=== PATIENT | male | born 1965 | race Hispanic/Latino ===

== ENCOUNTER 2020-12-22 08:41 | Outpatient (CLI) | payer SELFPAY | END 2020-12-22 08:42 | disposition home or self-care (01) | LOC: CSHWCC 08:41 | PROVIDERS: ATTEND Nurse Practitioner Family | DX: I87.331 Chronic venous hypertension (idiopathic) with ulcer and inflammation of right lower extremity (principal); L97.212 Non-pressure chronic ulcer of right calf with fat layer exposed; R60.0 Localized edema; T81.89XA Other complications of procedures, not elsewhere classified, initial encounter; E11.40 Type 2 diabetes mellitus with diabetic neuropathy, unspecified; E11.65 Type 2 diabetes mellitus with hyperglycemia; E11.621 Type 2 diabetes mellitus with foot ulcer; E66.01 Morbid (severe) obesity due to excess calories; G43.109 Migraine with aura, not intractable, without status migrainosus; I10 Essential (primary) hypertension; I83.91 Asymptomatic varicose veins of right lower extremity; I87.2 Venous insufficiency (chronic) (peripheral); I89.0 Lymphedema, not elsewhere classified; W45.0XXA Nail entering through skin, initial encounter | CPT/HCPCS: 11042; 97605; 99203; G0463 ==

== ENCOUNTER 2020-12-24 11:44 | Outpatient (CLI) | payer SELFPAY | END 2020-12-24 11:45 | disposition home or self-care (01) | LOC: CSHWCC 11:44 | PROVIDERS: ATTEND Nurse Practitioner Family | DX: T81.89XD Other complications of procedures, not elsewhere classified, subsequent encounter (principal); I87.331 Chronic venous hypertension (idiopathic) with ulcer and inflammation of right lower extremity; I87.2 Venous insufficiency (chronic) (peripheral); E11.622 Type 2 diabetes mellitus with other skin ulcer; E11.621 Type 2 diabetes mellitus with foot ulcer; L97.212 Non-pressure chronic ulcer of right calf with fat layer exposed; L97.509 Non-pressure chronic ulcer of other part of unspecified foot with unspecified severity; R60.0 Localized edema; I89.0 Lymphedema, not elsewhere classified; E11.40 Type 2 diabetes mellitus with diabetic neuropathy, unspecified; E11.65 Type 2 diabetes mellitus with hyperglycemia; G43.109 Migraine with aura, not intractable, without status migrainosus; I10 Essential (primary) hypertension; E66.01 Morbid (severe) obesity due to excess calories; W45.0XXD Nail entering through skin, subsequent encounter | CPT/HCPCS: 97605; 99213; G0463 ==

== ENCOUNTER 2020-12-26 12:50 | Outpatient (CLI) | payer SELFPAY | END 2020-12-26 12:51 | disposition home or self-care (01) | LOC: CSHWCC 12:50 | PROVIDERS: ATTEND Nurse Practitioner Family | DX: T81.89XD Other complications of procedures, not elsewhere classified, subsequent encounter (principal); I87.331 Chronic venous hypertension (idiopathic) with ulcer and inflammation of right lower extremity; I87.2 Venous insufficiency (chronic) (peripheral); E11.622 Type 2 diabetes mellitus with other skin ulcer; E11.621 Type 2 diabetes mellitus with foot ulcer; L97.212 Non-pressure chronic ulcer of right calf with fat layer exposed; L97.509 Non-pressure chronic ulcer of other part of unspecified foot with unspecified severity; I89.0 Lymphedema, not elsewhere classified; R60.0 Localized edema; E11.40 Type 2 diabetes mellitus with diabetic neuropathy, unspecified; E11.65 Type 2 diabetes mellitus with hyperglycemia; G43.109 Migraine with aura, not intractable, without status migrainosus; E66.01 Morbid (severe) obesity due to excess calories; W45.0XXD Nail entering through skin, subsequent encounter | CPT/HCPCS: 97605; 99213; G0463 ==

== ENCOUNTER 2020-12-31 13:48 | Outpatient (CLI) | payer SELFPAY | END 2020-12-31 13:49 | disposition home or self-care (01) | LOC: CSHWCC 13:48 | PROVIDERS: ATTEND Nurse Practitioner Family | DX: T81.89XD Other complications of procedures, not elsewhere classified, subsequent encounter (principal); I87.331 Chronic venous hypertension (idiopathic) with ulcer and inflammation of right lower extremity; L97.212 Non-pressure chronic ulcer of right calf with fat layer exposed; R60.0 Localized edema; E11.40 Type 2 diabetes mellitus with diabetic neuropathy, unspecified; E11.65 Type 2 diabetes mellitus with hyperglycemia; E11.621 Type 2 diabetes mellitus with foot ulcer; L97.509 Non-pressure chronic ulcer of other part of unspecified foot with unspecified severity; E66.01 Morbid (severe) obesity due to excess calories; G43.109 Migraine with aura, not intractable, without status migrainosus; I10 Essential (primary) hypertension; I83.91 Asymptomatic varicose veins of right lower extremity; I87.2 Venous insufficiency (chronic) (peripheral); I89.0 Lymphedema, not elsewhere classified; W45.0XXD Nail entering through skin, subsequent encounter | CPT/HCPCS: 97605; 99213; G0463 ==

== ENCOUNTER 2021-01-02 11:27 | Outpatient (CLI) | payer SELFPAY | END 2021-01-02 11:28 | disposition home or self-care (01) | LOC: CSHWCC 11:27 | PROVIDERS: ATTEND Nurse Practitioner Family | DX: T81.89XD Other complications of procedures, not elsewhere classified, subsequent encounter (principal); I87.331 Chronic venous hypertension (idiopathic) with ulcer and inflammation of right lower extremity; I87.2 Venous insufficiency (chronic) (peripheral); E11.621 Type 2 diabetes mellitus with foot ulcer; L97.212 Non-pressure chronic ulcer of right calf with fat layer exposed; E11.40 Type 2 diabetes mellitus with diabetic neuropathy, unspecified; E11.65 Type 2 diabetes mellitus with hyperglycemia; I89.0 Lymphedema, not elsewhere classified; E66.01 Morbid (severe) obesity due to excess calories; G43.109 Migraine with aura, not intractable, without status migrainosus; R60.0 Localized edema; W45.0XXD Nail entering through skin, subsequent encounter | CPT/HCPCS: 97605; 99213; G0463 ==

== ENCOUNTER 2021-01-16 11:08 | Outpatient (CLI) | payer OTHER | END 2021-01-16 11:09 | disposition home or self-care (01) | LOC: CSHWCC 11:08 | PROVIDERS: ATTEND Nurse Practitioner Family | DX: T81.89XD Other complications of procedures, not elsewhere classified, subsequent encounter (principal); I87.331 Chronic venous hypertension (idiopathic) with ulcer and inflammation of right lower extremity; I87.2 Venous insufficiency (chronic) (peripheral); E11.621 Type 2 diabetes mellitus with foot ulcer; E11.622 Type 2 diabetes mellitus with other skin ulcer; L97.212 Non-pressure chronic ulcer of right calf with fat layer exposed; L97.509 Non-pressure chronic ulcer of other part of unspecified foot with unspecified severity; I89.0 Lymphedema, not elsewhere classified; R60.0 Localized edema; E11.40 Type 2 diabetes mellitus with diabetic neuropathy, unspecified; E11.65 Type 2 diabetes mellitus with hyperglycemia; G43.109 Migraine with aura, not intractable, without status migrainosus; E66.01 Morbid (severe) obesity due to excess calories; W45.0XXD Nail entering through skin, subsequent encounter | CPT/HCPCS: 11043; 11046; 29581; 99213; G0463 ==

== ENCOUNTER 2021-04-16 09:28 | Outpatient (CLI) | payer OTHER | END 2021-04-16 09:29 | disposition home or self-care (01) | LOC: CSHWCC 09:28 | PROVIDERS: ATTEND Nurse Practitioner Family | DX: T81.89XD Other complications of procedures, not elsewhere classified, subsequent encounter (principal); E11.40 Type 2 diabetes mellitus with diabetic neuropathy, unspecified; E11.65 Type 2 diabetes mellitus with hyperglycemia; E11.621 Type 2 diabetes mellitus with foot ulcer; E66.01 Morbid (severe) obesity due to excess calories; G43.109 Migraine with aura, not intractable, without status migrainosus; I10 Essential (primary) hypertension; I83.91 Asymptomatic varicose veins of right lower extremity; I87.2 Venous insufficiency (chronic) (peripheral); I87.331 Chronic venous hypertension (idiopathic) with ulcer and inflammation of right lower extremity; L97.212 Non-pressure chronic ulcer of right calf with fat layer exposed; I89.0 Lymphedema, not elsewhere classified; T86.821 Skin graft (allograft) (autograft) failure; W45.0XXS Nail entering through skin, sequela; Z91.19 Patient's noncompliance with other medical treatment and regimen | CPT/HCPCS: 11042; 11045; 87070; 87077; 87186; 87205; 99213; G0463 ==

== ENCOUNTER 2021-04-21 11:20 | Outpatient (CLI) | payer OTHER | END 2021-04-21 11:21 | disposition home or self-care (01) | LOC: CSHWCC 11:20 | PROVIDERS: ATTEND Nurse Practitioner Family | DX: T81.89XD Other complications of procedures, not elsewhere classified, subsequent encounter (principal); T86.821 Skin graft (allograft) (autograft) failure; I87.331 Chronic venous hypertension (idiopathic) with ulcer and inflammation of right lower extremity; I87.2 Venous insufficiency (chronic) (peripheral); E11.621 Type 2 diabetes mellitus with foot ulcer; E11.622 Type 2 diabetes mellitus with other skin ulcer; L97.212 Non-pressure chronic ulcer of right calf with fat layer exposed; L97.509 Non-pressure chronic ulcer of other part of unspecified foot with unspecified severity; E11.40 Type 2 diabetes mellitus with diabetic neuropathy, unspecified; E11.65 Type 2 diabetes mellitus with hyperglycemia; I89.0 Lymphedema, not elsewhere classified; R60.0 Localized edema; G43.109 Migraine with aura, not intractable, without status migrainosus; Z91.19 Patient's noncompliance with other medical treatment and regimen; E66.01 Morbid (severe) obesity due to excess calories; W45.0XXD Nail entering through skin, subsequent encounter | CPT/HCPCS: 99213; G0463 ==

== ENCOUNTER 2021-06-02 08:10 | Outpatient (CLI) | payer OTHER | END 2021-06-02 08:11 | disposition home or self-care (01) | LOC: CSHWCC 08:10 | PROVIDERS: ATTEND Nurse Practitioner Family | DX: T81.89XD Other complications of procedures, not elsewhere classified, subsequent encounter (principal); T86.821 Skin graft (allograft) (autograft) failure; I83.91 Asymptomatic varicose veins of right lower extremity; I87.2 Venous insufficiency (chronic) (peripheral); E11.621 Type 2 diabetes mellitus with foot ulcer; L97.509 Non-pressure chronic ulcer of other part of unspecified foot with unspecified severity; E11.40 Type 2 diabetes mellitus with diabetic neuropathy, unspecified; G43.109 Migraine with aura, not intractable, without status migrainosus; I89.0 Lymphedema, not elsewhere classified; E66.01 Morbid (severe) obesity due to excess calories; W45.0XXD Nail entering through skin, subsequent encounter; Z91.19 Patient's noncompliance with other medical treatment and regimen | CPT/HCPCS: 97607; 99213; G0463 ==

== ENCOUNTER 2021-06-05 08:56 | Outpatient (CLI) | payer OTHER | END 2021-06-05 08:57 | disposition home or self-care (01) | LOC: CSHWCC 08:56 | PROVIDERS: ATTEND Nurse Practitioner Family | DX: T81.89XD Other complications of procedures, not elsewhere classified, subsequent encounter (principal); T86.821 Skin graft (allograft) (autograft) failure; I83.91 Asymptomatic varicose veins of right lower extremity; I87.2 Venous insufficiency (chronic) (peripheral); E11.621 Type 2 diabetes mellitus with foot ulcer; E11.40 Type 2 diabetes mellitus with diabetic neuropathy, unspecified; E11.65 Type 2 diabetes mellitus with hyperglycemia; L97.509 Non-pressure chronic ulcer of other part of unspecified foot with unspecified severity; E66.01 Morbid (severe) obesity due to excess calories; I10 Essential (primary) hypertension; G43.109 Migraine with aura, not intractable, without status migrainosus; I89.0 Lymphedema, not elsewhere classified; W45.0XXS Nail entering through skin, sequela; Z91.19 Patient's noncompliance with other medical treatment and regimen | CPT/HCPCS: 99213; G0463 ==

== ENCOUNTER 2021-06-09 09:06 | Outpatient (CLI) | payer OTHER | END 2021-06-09 09:07 | disposition home or self-care (01) | LOC: CSHWCC 09:06 | PROVIDERS: ATTEND Nurse Practitioner Family | DX: T81.89XD Other complications of procedures, not elsewhere classified, subsequent encounter (principal); E11.40 Type 2 diabetes mellitus with diabetic neuropathy, unspecified; E11.65 Type 2 diabetes mellitus with hyperglycemia; E11.621 Type 2 diabetes mellitus with foot ulcer; E66.01 Morbid (severe) obesity due to excess calories; G43.109 Migraine with aura, not intractable, without status migrainosus; I10 Essential (primary) hypertension; I83.91 Asymptomatic varicose veins of right lower extremity; I87.2 Venous insufficiency (chronic) (peripheral); I89.0 Lymphedema, not elsewhere classified; T86.821 Skin graft (allograft) (autograft) failure; W45.0XXS Nail entering through skin, sequela; Z91.19 Patient's noncompliance with other medical treatment and regimen | CPT/HCPCS: 99213; G0463 ==

== ENCOUNTER 2021-06-12 08:10 | Outpatient (CLI) | payer OTHER | END 2021-06-12 08:11 | disposition home or self-care (01) | LOC: CSHWCC 08:10 | PROVIDERS: ATTEND Nurse Practitioner Family | DX: T81.89XD Other complications of procedures, not elsewhere classified, subsequent encounter (principal); E11.621 Type 2 diabetes mellitus with foot ulcer; E11.40 Type 2 diabetes mellitus with diabetic neuropathy, unspecified; E11.65 Type 2 diabetes mellitus with hyperglycemia; E66.01 Morbid (severe) obesity due to excess calories; G43.109 Migraine with aura, not intractable, without status migrainosus; I10 Essential (primary) hypertension; I83.91 Asymptomatic varicose veins of right lower extremity; I87.2 Venous insufficiency (chronic) (peripheral); T86.821 Skin graft (allograft) (autograft) failure; W45.0XXS Nail entering through skin, sequela; Z91.19 Patient's noncompliance with other medical treatment and regimen | CPT/HCPCS: 99213; G0463 ==

== ENCOUNTER 2021-06-17 08:24 | Outpatient (CLI) | payer OTHER | END 2021-06-17 08:25 | disposition home or self-care (01) | LOC: CSHWCC 08:24 | PROVIDERS: ATTEND Nurse Practitioner Family | DX: T81.89XD Other complications of procedures, not elsewhere classified, subsequent encounter (principal); T86.821 Skin graft (allograft) (autograft) failure; I83.91 Asymptomatic varicose veins of right lower extremity; I87.2 Venous insufficiency (chronic) (peripheral); E11.621 Type 2 diabetes mellitus with foot ulcer; L97.509 Non-pressure chronic ulcer of other part of unspecified foot with unspecified severity; E11.40 Type 2 diabetes mellitus with diabetic neuropathy, unspecified; E11.65 Type 2 diabetes mellitus with hyperglycemia; G43.109 Migraine with aura, not intractable, without status migrainosus; I10 Essential (primary) hypertension; E66.01 Morbid (severe) obesity due to excess calories; W45.0XXD Nail entering through skin, subsequent encounter; Z91.19 Patient's noncompliance with other medical treatment and regimen ==

== ENCOUNTER 2021-06-24 08:25 | Outpatient (CLI) | payer SELFPAY | END 2021-06-24 08:26 | disposition home or self-care (01) | LOC: CSHWCC 08:25 | PROVIDERS: ATTEND Nurse Practitioner Family | DX: T81.89XD Other complications of procedures, not elsewhere classified, subsequent encounter (principal); T86.821 Skin graft (allograft) (autograft) failure; I83.91 Asymptomatic varicose veins of right lower extremity; I87.2 Venous insufficiency (chronic) (peripheral); E11.621 Type 2 diabetes mellitus with foot ulcer; L97.509 Non-pressure chronic ulcer of other part of unspecified foot with unspecified severity; I89.0 Lymphedema, not elsewhere classified; G43.109 Migraine with aura, not intractable, without status migrainosus; E11.40 Type 2 diabetes mellitus with diabetic neuropathy, unspecified; E11.65 Type 2 diabetes mellitus with hyperglycemia; I10 Essential (primary) hypertension; E66.01 Morbid (severe) obesity due to excess calories; W45.0XXD Nail entering through skin, subsequent encounter; Z91.19 Patient's noncompliance with other medical treatment and regimen | CPT/HCPCS: 99213; G0463 ==

== ENCOUNTER 2021-07-01 09:11 | Outpatient (CLI) | payer SELFPAY | END 2021-07-01 09:12 | disposition home or self-care (01) | LOC: CSHWCC 09:11 | PROVIDERS: ATTEND Nurse Practitioner Family | DX: T81.89XD Other complications of procedures, not elsewhere classified, subsequent encounter (principal); T86.821 Skin graft (allograft) (autograft) failure; I87.2 Venous insufficiency (chronic) (peripheral); E11.621 Type 2 diabetes mellitus with foot ulcer; L97.509 Non-pressure chronic ulcer of other part of unspecified foot with unspecified severity; E11.40 Type 2 diabetes mellitus with diabetic neuropathy, unspecified; E11.65 Type 2 diabetes mellitus with hyperglycemia; I83.91 Asymptomatic varicose veins of right lower extremity; E66.01 Morbid (severe) obesity due to excess calories; G43.109 Migraine with aura, not intractable, without status migrainosus; I10 Essential (primary) hypertension; I89.0 Lymphedema, not elsewhere classified; Z91.19 Patient's noncompliance with other medical treatment and regimen; W45.0XXD Nail entering through skin, subsequent encounter | CPT/HCPCS: 11042; 99213; G0463 ==

== ENCOUNTER 2021-07-15 08:12 | Outpatient (CLI) | payer SELFPAY | END 2021-07-15 08:13 | disposition home or self-care (01) | LOC: CSHWCC 08:12 | PROVIDERS: ATTEND Nurse Practitioner Family | DX: T81.89XD Other complications of procedures, not elsewhere classified, subsequent encounter (principal); E11.40 Type 2 diabetes mellitus with diabetic neuropathy, unspecified; E11.65 Type 2 diabetes mellitus with hyperglycemia; E11.621 Type 2 diabetes mellitus with foot ulcer; E66.01 Morbid (severe) obesity due to excess calories; G43.109 Migraine with aura, not intractable, without status migrainosus; I10 Essential (primary) hypertension; I83.91 Asymptomatic varicose veins of right lower extremity; I87.2 Venous insufficiency (chronic) (peripheral); I89.0 Lymphedema, not elsewhere classified; T86.821 Skin graft (allograft) (autograft) failure; W45.0XXS Nail entering through skin, sequela; Z91.19 Patient's noncompliance with other medical treatment and regimen ==

== ENCOUNTER 2021-08-20 08:16 | Outpatient (CLI) | payer OTHER, SELFPAY | END 2021-08-20 08:17 | disposition home or self-care (01) | LOC: CSHWCC 08:16 | PROVIDERS: ATTEND Nurse Practitioner Family | DX: T81.89XD Other complications of procedures, not elsewhere classified, subsequent encounter (principal); E11.621 Type 2 diabetes mellitus with foot ulcer; L97.509 Non-pressure chronic ulcer of other part of unspecified foot with unspecified severity; I89.0 Lymphedema, not elsewhere classified; E11.40 Type 2 diabetes mellitus with diabetic neuropathy, unspecified; E11.65 Type 2 diabetes mellitus with hyperglycemia; E66.01 Morbid (severe) obesity due to excess calories; G43.109 Migraine with aura, not intractable, without status migrainosus; I83.91 Asymptomatic varicose veins of right lower extremity; I87.2 Venous insufficiency (chronic) (peripheral); T86.821 Skin graft (allograft) (autograft) failure; W45.0XXD Nail entering through skin, subsequent encounter; Z91.19 Patient's noncompliance with other medical treatment and regimen ==

== ENCOUNTER 2021-09-16 08:28 | Outpatient (CLI) | payer OTHER | END 2021-09-16 08:29 | disposition home or self-care (01) | LOC: CSHWCC 08:28 | PROVIDERS: ATTEND Nurse Practitioner Family | DX: T81.89XD Other complications of procedures, not elsewhere classified, subsequent encounter (principal) | CPT/HCPCS: 99213; G0463 ==

== ENCOUNTER 2022-01-05 08:03 | Outpatient (CLI) | payer OTHER | END 2022-01-05 08:04 | disposition home or self-care (01) | LOC: CSHWCC 08:03 | PROVIDERS: ATTEND Nurse Practitioner Family | DX: I87.332 Chronic venous hypertension (idiopathic) with ulcer and inflammation of left lower extremity (principal); S81.802D Unspecified open wound, left lower leg, subsequent encounter; S91.309D Unspecified open wound, unspecified foot, subsequent encounter; L97.822 Non-pressure chronic ulcer of other part of left lower leg with fat layer exposed; R60.0 Localized edema | CPT/HCPCS: 99213; G0463 ==

== ENCOUNTER 2022-01-19 08:04 | Outpatient (CLI) | payer SELFPAY | END 2022-01-19 08:05 | disposition home or self-care (01) | LOC: CSHWCC 08:04 | PROVIDERS: ATTEND Nurse Practitioner Family | DX: S91.302D Unspecified open wound, left foot, subsequent encounter (principal); I87.332 Chronic venous hypertension (idiopathic) with ulcer and inflammation of left lower extremity; L97.822 Non-pressure chronic ulcer of other part of left lower leg with fat layer exposed; R60.0 Localized edema; L97.821 Non-pressure chronic ulcer of other part of left lower leg limited to breakdown of skin | CPT/HCPCS: 29581; 99213; G0463 ==

== ENCOUNTER 2022-02-02 08:10 | Outpatient (CLI) | payer MEDICAID, OTHER | END 2022-02-02 08:11 | disposition home or self-care (01) | LOC: CSHWCC 08:10 | PROVIDERS: ATTEND Nurse Practitioner Family | DX: S91.302D Unspecified open wound, left foot, subsequent encounter (principal); I87.332 Chronic venous hypertension (idiopathic) with ulcer and inflammation of left lower extremity; L97.822 Non-pressure chronic ulcer of other part of left lower leg with fat layer exposed; R60.0 Localized edema | CPT/HCPCS: 29581 ==

== ENCOUNTER 2022-02-16 08:07 | Outpatient (CLI) | payer OTHER | END 2022-02-16 08:08 | disposition home or self-care (01) | LOC: CSHWCC 08:07 | PROVIDERS: ATTEND Nurse Practitioner Family | DX: I87.332 Chronic venous hypertension (idiopathic) with ulcer and inflammation of left lower extremity (principal); L97.822 Non-pressure chronic ulcer of other part of left lower leg with fat layer exposed; R60.0 Localized edema ==

== ENCOUNTER 2022-03-02 08:01 | Outpatient (CLI) | payer OTHER, MEDICAID | END 2022-03-02 08:02 | disposition home or self-care (01) | LOC: CSHWCC 08:01 | PROVIDERS: ATTEND Nurse Practitioner Family | DX: I87.332 Chronic venous hypertension (idiopathic) with ulcer and inflammation of left lower extremity (principal); L97.822 Non-pressure chronic ulcer of other part of left lower leg with fat layer exposed; L97.821 Non-pressure chronic ulcer of other part of left lower leg limited to breakdown of skin; S81.801D Unspecified open wound, right lower leg, subsequent encounter; R60.0 Localized edema | CPT/HCPCS: 87070; 87077; 87186; 87205 ==

== ENCOUNTER 2022-03-23 08:03 | Outpatient (CLI) | payer MEDICAID | END 2022-03-23 08:04 | disposition home or self-care (01) | LOC: CSHWCC 08:03 | PROVIDERS: ATTEND Nurse Practitioner Family | DX: I87.332 Chronic venous hypertension (idiopathic) with ulcer and inflammation of left lower extremity (principal); L97.822 Non-pressure chronic ulcer of other part of left lower leg with fat layer exposed; S81.801D Unspecified open wound, right lower leg, subsequent encounter; R60.0 Localized edema | CPT/HCPCS: 29581; 99213; G0463 ==

== ENCOUNTER 2022-04-06 08:04 | Outpatient (CLI) | payer OTHER, MEDICAID | END 2022-04-06 08:05 | disposition home or self-care (01) | LOC: CSHWCC 08:04 | PROVIDERS: ATTEND Nurse Practitioner Family | DX: I87.332 Chronic venous hypertension (idiopathic) with ulcer and inflammation of left lower extremity (principal); L97.822 Non-pressure chronic ulcer of other part of left lower leg with fat layer exposed; L97.821 Non-pressure chronic ulcer of other part of left lower leg limited to breakdown of skin; R60.0 Localized edema | CPT/HCPCS: 29581; 99213; G0463 ==

== ENCOUNTER 2022-04-20 08:08 | Outpatient (CLI) | payer SELFPAY | END 2022-04-20 08:09 | disposition home or self-care (01) | LOC: CSHWCC 08:08 | PROVIDERS: ATTEND Preventive Medicine Undersea and Hyperbaric Medicine | DX: I87.332 Chronic venous hypertension (idiopathic) with ulcer and inflammation of left lower extremity (principal); L97.822 Non-pressure chronic ulcer of other part of left lower leg with fat layer exposed; I87.312 Chronic venous hypertension (idiopathic) with ulcer of left lower extremity; L97.821 Non-pressure chronic ulcer of other part of left lower leg limited to breakdown of skin | CPT/HCPCS: 29581 ==

== ENCOUNTER 2022-05-18 08:22 | Outpatient (CLI) | payer MEDICAID | END 2022-05-18 08:23 | disposition home or self-care (01) | LOC: CSHWCC 08:22 | PROVIDERS: ATTEND Preventive Medicine Undersea and Hyperbaric Medicine | DX: L97.821 Non-pressure chronic ulcer of other part of left lower leg limited to breakdown of skin (principal); R60.0 Localized edema | CPT/HCPCS: 29581; 99212; G0463 ==

== ENCOUNTER 2022-06-01 08:08 | Outpatient (CLI) | payer MEDICAID | END 2022-06-01 08:09 | disposition home or self-care (01) | LOC: CSHWCC 08:08 | PROVIDERS: ATTEND Preventive Medicine Undersea and Hyperbaric Medicine | DX: L97.821 Non-pressure chronic ulcer of other part of left lower leg limited to breakdown of skin (principal); R60.0 Localized edema | CPT/HCPCS: 99213; G0463 ==

== ENCOUNTER 2022-07-06 08:10 | Outpatient (CLI) | payer OTHER | END 2022-07-06 08:11 | disposition home or self-care (01) | LOC: CSHWCC 08:10 | PROVIDERS: ATTEND Nurse Practitioner Family | DX: L97.821 Non-pressure chronic ulcer of other part of left lower leg limited to breakdown of skin (principal); R60.0 Localized edema | CPT/HCPCS: 11042 ==

== ENCOUNTER 2022-09-10 08:10 | Outpatient (CLI) | payer OTHER | END 2022-09-10 08:11 | disposition home or self-care (01) | LOC: CSHWCC 08:10 | PROVIDERS: ATTEND Nurse Practitioner Family | DX: I87.312 Chronic venous hypertension (idiopathic) with ulcer of left lower extremity (principal); L97.829 Non-pressure chronic ulcer of other part of left lower leg with unspecified severity; R60.0 Localized edema | CPT/HCPCS: 11042; 99212; G0463 ==

== ENCOUNTER 2022-10-01 08:12 | Outpatient (CLI) | payer OTHER | END 2022-10-01 08:13 | disposition home or self-care (01) | LOC: CSHWCC 08:12 | PROVIDERS: ATTEND Nurse Practitioner Family | DX: R60.0 Localized edema (principal); I87.312 Chronic venous hypertension (idiopathic) with ulcer of left lower extremity; L97.829 Non-pressure chronic ulcer of other part of left lower leg with unspecified severity | CPT/HCPCS: 99213; G0463 ==

== ENCOUNTER 2022-10-22 08:05 | Outpatient (CLI) | payer OTHER | END 2022-10-22 08:06 | disposition home or self-care (01) | LOC: CSHWCC 08:05 | PROVIDERS: ATTEND Nurse Practitioner Family | DX: I87.312 Chronic venous hypertension (idiopathic) with ulcer of left lower extremity (principal); L97.829 Non-pressure chronic ulcer of other part of left lower leg with unspecified severity; R60.0 Localized edema ==

== ENCOUNTER 2022-11-26 08:02 | Outpatient (CLI) | payer OTHER | END 2022-11-26 08:03 | disposition home or self-care (01) | LOC: CSHWCC 08:02 | PROVIDERS: ATTEND Nurse Practitioner Family | DX: I87.312 Chronic venous hypertension (idiopathic) with ulcer of left lower extremity (principal); L97.829 Non-pressure chronic ulcer of other part of left lower leg with unspecified severity; S81.002D Unspecified open wound, left knee, subsequent encounter; R60.0 Localized edema ==

== ENCOUNTER 2024-04-03 15:28 | Outpatient (CLI) | payer MEDICARE, SELFPAY | END 2024-04-03 15:29 | disposition home or self-care (01) | LOC: CSHWCC 15:28 | PROVIDERS: ATTEND Nurse Practitioner Family | DX: I87.312 Chronic venous hypertension (idiopathic) with ulcer of left lower extremity (principal); E11.621 Type 2 diabetes mellitus with foot ulcer; L97.522 Non-pressure chronic ulcer of other part of left foot with fat layer exposed | CPT/HCPCS: 99213; G0463 ==

== ENCOUNTER 2024-04-06 09:05 | Outpatient (CLI) | payer SELFPAY, MEDICARE | END 2024-04-06 09:06 | disposition home or self-care (01) | LOC: CSHWCC 09:05 | PROVIDERS: ATTEND Nurse Practitioner Family | DX: I87.312 Chronic venous hypertension (idiopathic) with ulcer of left lower extremity (principal); E11.621 Type 2 diabetes mellitus with foot ulcer; L97.522 Non-pressure chronic ulcer of other part of left foot with fat layer exposed | CPT/HCPCS: 11042 ==

== ENCOUNTER 2024-05-04 09:40 | Outpatient (CLI) | payer SELFPAY | END 2024-05-04 09:41 | disposition home or self-care (01) | LOC: CSHWCC 09:40 | PROVIDERS: ATTEND Nurse Practitioner Family | DX: I87.312 Chronic venous hypertension (idiopathic) with ulcer of left lower extremity (principal); E11.621 Type 2 diabetes mellitus with foot ulcer; L97.522 Non-pressure chronic ulcer of other part of left foot with fat layer exposed | CPT/HCPCS: 11042 ==

== ENCOUNTER 2024-05-14 08:43 | Outpatient (CLI) | payer SELFPAY | END 2024-05-14 08:44 | disposition home or self-care (01) | LOC: CSHWCC 08:43 | PROVIDERS: ATTEND Nurse Practitioner Family | DX: I87.312 Chronic venous hypertension (idiopathic) with ulcer of left lower extremity (principal); E11.621 Type 2 diabetes mellitus with foot ulcer; L97.522 Non-pressure chronic ulcer of other part of left foot with fat layer exposed | CPT/HCPCS: 11042 ==

== ENCOUNTER 2024-05-18 08:53 | Outpatient (CLI) | payer SELFPAY | END 2024-05-18 08:54 | disposition home or self-care (01) | LOC: CSHWCC 08:53 | PROVIDERS: ATTEND Nurse Practitioner Family | DX: E11.621 Type 2 diabetes mellitus with foot ulcer (principal); I87.312 Chronic venous hypertension (idiopathic) with ulcer of left lower extremity; L97.522 Non-pressure chronic ulcer of other part of left foot with fat layer exposed | CPT/HCPCS: 11042 ==

== ENCOUNTER 2024-06-06 08:39 | Outpatient (CLI) | payer SELFPAY | END 2024-06-06 08:40 | disposition home or self-care (01) | LOC: CSHWCC 08:39 | PROVIDERS: ATTEND Nurse Practitioner Family | DX: I87.312 Chronic venous hypertension (idiopathic) with ulcer of left lower extremity (principal); E11.621 Type 2 diabetes mellitus with foot ulcer; L97.522 Non-pressure chronic ulcer of other part of left foot with fat layer exposed | CPT/HCPCS: 11042; 99214; G0463 ==

== ENCOUNTER 2024-06-13 09:38 | Outpatient (CLI) | payer SELFPAY | END 2024-06-13 09:39 | disposition home or self-care (01) | LOC: CSHWCC 09:38 | PROVIDERS: ATTEND Nurse Practitioner Family | DX: I87.312 Chronic venous hypertension (idiopathic) with ulcer of left lower extremity (principal); E11.621 Type 2 diabetes mellitus with foot ulcer; L97.522 Non-pressure chronic ulcer of other part of left foot with fat layer exposed; E11.622 Type 2 diabetes mellitus with other skin ulcer; L97.222 Non-pressure chronic ulcer of left calf with fat layer exposed | CPT/HCPCS: 11042; 99213; G0463 ==

== ENCOUNTER 2024-06-28 09:11 | Outpatient (CLI) | payer MEDICARE | END 2024-06-28 09:12 | disposition home or self-care (01) | LOC: CSHWCC 09:11 | PROVIDERS: ATTEND Nurse Practitioner Family | DX: I87.312 Chronic venous hypertension (idiopathic) with ulcer of left lower extremity (principal); E11.621 Type 2 diabetes mellitus with foot ulcer; L97.522 Non-pressure chronic ulcer of other part of left foot with fat layer exposed | CPT/HCPCS: 11042; 97605; G0463; 99212 ==

== ENCOUNTER 2024-07-13 11:30 | Outpatient (CLI) | payer MEDICARE | END 2024-07-13 11:31 | disposition home or self-care (01) | LOC: CSHWCC 11:30 | PROVIDERS: ATTEND Nurse Practitioner Family | DX: I87.312 Chronic venous hypertension (idiopathic) with ulcer of left lower extremity (principal); E11.621 Type 2 diabetes mellitus with foot ulcer; L97.522 Non-pressure chronic ulcer of other part of left foot with fat layer exposed | CPT/HCPCS: 11042; 97605 ==

== ENCOUNTER 2024-07-19 13:30 | Outpatient (CLI) | payer MEDICARE | END 2024-07-19 13:31 | disposition home or self-care (01) | LOC: CSHWCC 13:30 | PROVIDERS: ATTEND Family Medicine | DX: I87.312 Chronic venous hypertension (idiopathic) with ulcer of left lower extremity (principal); E11.621 Type 2 diabetes mellitus with foot ulcer; L97.522 Non-pressure chronic ulcer of other part of left foot with fat layer exposed | CPT/HCPCS: 11042 ==

== ENCOUNTER 2024-07-27 08:24 | Outpatient (CLI) | payer MEDICARE | END 2024-07-27 08:25 | disposition home or self-care (01) | LOC: CSHWCC 08:24 | PROVIDERS: ATTEND Nurse Practitioner Family | DX: E11.621 Type 2 diabetes mellitus with foot ulcer (principal); I87.312 Chronic venous hypertension (idiopathic) with ulcer of left lower extremity; L97.522 Non-pressure chronic ulcer of other part of left foot with fat layer exposed | CPT/HCPCS: 11042; 97605 ==

== ENCOUNTER 2024-08-03 12:08 | Outpatient (CLI) | payer MEDICARE | END 2024-08-03 12:09 | disposition home or self-care (01) | LOC: CSHWCC 12:08 | PROVIDERS: ATTEND Nurse Practitioner Family | DX: E11.621 Type 2 diabetes mellitus with foot ulcer (principal); I87.312 Chronic venous hypertension (idiopathic) with ulcer of left lower extremity; L97.522 Non-pressure chronic ulcer of other part of left foot with fat layer exposed | CPT/HCPCS: 11042; G0463; 99215 ==